=== PATIENT | male | born 1980 | race American Indian/Alaskan Native ===

== ENCOUNTER 2020-03-27 13:41 | Emergency (ER) | payer MEDICAID ==
[~2020-03-27] VITALS: Ht 188 cm; Wt 120.0 kg
[~2020-03-27 13:41] MED LIST: CYCL-1 PO; HYDR1TAB PO; MARIJUANA; NAP375T CORPAK
[2020-03-27 13:49] VITALS: BP 144/80
[2020-03-27] MEDS ORDERED: CYCL-1 PO (15:07)
== END 2020-03-27 15:29 | disposition home or self-care (01) ==
LOC: ER 13:41
DX: R51 Headache (principal); M54.2 Cervicalgia; J45.909 Unspecified asthma, uncomplicated; Z79.899 Other long term (current) drug therapy
CPT/HCPCS: 99283